=== PATIENT | female | born 1990 | race Caucasian/White ===

== ENCOUNTER → 2016-10-10 | Outpatient (CLI) | payer OTHER ==
[~2016-10-10] MED LIST: ACET500C PO; ACET50CA PO; CLAR1TAB2 PO; FLON0.054; K-TA10TA PO
[2016-10-10 13:26] LABS: BASO # 0.1 K/mm3 (0.0-0.2); BASO % 1.8 % (0.0-1.0); EOS # 0.3 K/mm3 (0.0-0.50); EOS % 4.5 % (0.0-3.0); LARGE UNSTAINED CELL # 0.1 K/mm3 (0.0-0.4); LARGE UNSTAINED CELL % 1.4 % (0.0-4.0); LYMPH # 1.8 K/mm3 (1.5-6.5); LYMPH % 29.9 % (24.0-44.0); MEAN CORPUSCULAR HEMOGLOBIN 34.5 pg (27.0-33.0); MEAN CORPUSCULAR HGB CONC 33.7 g/dl (32.0-36.5); MEAN CORPUSCULAR VOLUME 102.3 fl (80.0-96.0); MONO # 0.3 K/mm3 (0.0-0.8); MONO % 5.8 % (0.0-5.0); NEUTROPHILS # 3.3 K/mm3 (1.8-7.7); NEUTROPHILS % 56.6 % (36.0-66.0); PLATELET COUNT, AUTOMATED 350 k/mm3 (150-450); RED CELL DISTRIBUTION WIDTH 11.8 % (11.5-14.5); WHITE BLOOD COUNT 5.8 K/mm3 (4.0-10.0)
[2016-10-10 13:42] LABS: VITAMIN B12 LEVEL 1348 PG/ML (247-911)
[2016-10-10 13:53] LABS: ALBUMIN 4.1 GM/DL (3.2-5.2); ALBUMIN/GLOBULIN RATIO 1.24 (1.00-1.93); ALKALINE PHOSPHATASE 39 U/L (45-117); ALT/SGPT 16 U/L (12-78); ANION GAP 6 MEQ/L (8-16); AST/SGOT 4 U/L (15-37); BILIRUBIN,TOTAL 0.5 MG/DL (0.2-1.0); BLOOD UREA NITROGEN 12 MG/DL (7-18); CALCIUM LEVEL 9.4 MG/DL (8.5-10.1); CARBON DIOXIDE LEVEL 23 MEQ/L (21-32); CHLORIDE LEVEL 107 MEQ/L (98-107); CHOLESTEROL LEVEL 174 MG/DL (<200); CREATININE FOR GFR 0.77 MG/DL (0.55-1.02); FREE T4 0.88 NG/DL (0.76-1.46); GLOMERULAR FILTRATION RATE > 60.0 (>60); GLUCOSE, FASTING 84 MG/DL (70-105); POTASSIUM SERUM 4.3 MEQ/L (3.5-5.1); SODIUM LEVEL 136 MEQ/L (136-145); TOTAL PROTEIN 7.4 GM/DL (6.4-8.2); TRIGLYCERIDES LEVEL 125 MG/DL (<150)
== END ==
LOC: M WUC 09:00
PROVIDERS: ATTEND Physician Assistant
DX: R53.83 Other fatigue (principal); Z13.220 Encounter for screening for lipoid disorders

== ENCOUNTER → 2016-12-29 | Outpatient (CLI) | payer OTHER ==
[2016-12-29 14:34] LABS: BASO # 0.1 10^3/uL (0.0-0.2); BASO % 1.5 % (0.0-1.0); EOS # 0.2 10^3/uL (0.0-0.50); EOS % 2.7 % (0.0-3.0); IMMATURE GRANULOCYTE % 0.1 % (0-0); LYMPH % 40.3 % (24.0-44.0); MEAN CORPUSCULAR HEMOGLOBIN 35.1 pg (27.0-33.0); MEAN CORPUSCULAR HGB CONC 35.1 g/dl (32.0-36.5); MEAN CORPUSCULAR VOLUME 99.7 fl (80.0-96.0); MONO # 0.7 10^3/uL (0.0-0.8); MONO % 9.4 % (0.0-5.0); NEUTROPHILS # 3.4 10^3/uL (1.8-7.7); PLATELET COUNT, AUTOMATED 368 10^3/uL (150-450); RED CELL DISTRIBUTION WIDTH 11.1 % (11.5-14.5); WHITE BLOOD COUNT 7.3 10^3/uL (4.0-10.0)
[2016-12-29 14:41] LABS: ALBUMIN 3.8 GM/DL (3.2-5.2); ALBUMIN/GLOBULIN RATIO 1.09 (1.00-1.93); ALKALINE PHOSPHATASE 41 U/L (45-117); ALT/SGPT 16 U/L (12-78); ANION GAP 8 MEQ/L (8-16); AST/SGOT 5 U/L (15-37); BILIRUBIN,TOTAL 0.6 MG/DL (0.2-1.0); BLOOD UREA NITROGEN 15 MG/DL (7-18); CALCIUM LEVEL 9.1 MG/DL (8.5-10.1); CARBON DIOXIDE LEVEL 23 MEQ/L (21-32); CHLORIDE LEVEL 110 MEQ/L (98-107); CREATININE FOR GFR 0.79 MG/DL (0.55-1.02); GLOMERULAR FILTRATION RATE > 60.0 (>60); GLUCOSE, FASTING 81 MG/DL (70-105); POTASSIUM SERUM 4.3 MEQ/L (3.5-5.1); SODIUM LEVEL 141 MEQ/L (136-145); TOTAL PROTEIN 7.3 GM/DL (6.4-8.2)
== END ==
LOC: M WUC 09:27
PROVIDERS: ATTEND Physician Assistant
DX: E88.81 Metabolic syndrome and other insulin resistance (principal); E87.6 Hypokalemia; E55.9 Vitamin D deficiency, unspecified

== ENCOUNTER → 2017-02-05 | Outpatient (REF) | payer OTHER ==
[2017-02-05 20:08] LABS: REASON FOR REVIEW COMPREHENSIVE REVIEW
== END ==
LOC: M LAB REF 17:33
PROVIDERS: ATTEND Internal Medicine Medical Oncology
DX: D64.9 Anemia, unspecified (principal)

== ENCOUNTER → 2017-02-16 | Outpatient (CLI) | payer OTHER ==
[2017-02-16 17:36] LABS: FOLATE 7.9 NG/ML (>5.4)
[2017-02-16 17:48] LABS: ALBUMIN 3.9 GM/DL (3.2-5.2); ALBUMIN/GLOBULIN RATIO 1.18 (1.00-1.93); ALKALINE PHOSPHATASE 26 U/L (45-117); ALT/SGPT 17 U/L (12-78); ANION GAP 10 MEQ/L (8-16); AST/SGOT 6 U/L (7-37); BILIRUBIN,TOTAL 0.6 MG/DL (0.2-1.0); BLOOD UREA NITROGEN 12 MG/DL (7-18); CALCIUM LEVEL 9.1 MG/DL (8.5-10.1); CARBON DIOXIDE LEVEL 20 MEQ/L (21-32); CHLORIDE LEVEL 111 MEQ/L (98-107); CREATININE FOR GFR 0.74 MG/DL (0.55-1.02); FERRITIN 84 NG/ML (8-252); FREE T4 0.84 NG/DL (0.76-1.46); GLOMERULAR FILTRATION RATE > 60.0 (>60); GLUCOSE, FASTING 81 MG/DL (70-105); SODIUM LEVEL 141 MEQ/L (136-145); TOTAL IRON BINDING CAPACITY 228 UG/DL (250-450); TOTAL PROTEIN 7.2 GM/DL (6.4-8.2)
[2017-02-16 18:00] LABS: BASO # 0.1 10^3/uL (0.0-0.2); BASO % 1.1 % (0.0-1.0); EOS # 0.1 10^3/uL (0.0-0.50); IMMATURE GRANULOCYTE % 0.2 % (0-0); LYMPH # 1.4 10^3/uL (1.5-6.5); MEAN CORPUSCULAR HEMOGLOBIN 34.6 pg (27.0-33.0); MEAN CORPUSCULAR HGB CONC 34.8 g/dl (32.0-36.5); MEAN CORPUSCULAR VOLUME 99.5 fl (80.0-96.0); MONO # 0.6 10^3/uL (0.0-0.8); MONO % 6.8 % (0.0-5.0); NEUTROPHILS % 75.9 % (36.0-66.0); PLATELET COUNT, AUTOMATED 342 10^3/uL (150-450); RED CELL DISTRIBUTION WIDTH 11.3 % (11.5-14.5); RETIC HEMOGLOBIN EQUIVALENT 38.3 pg (24-36); RETICULOCYTE % 1.4 % (0.5-1.5); WHITE BLOOD COUNT 9.2 10^3/uL (4.0-10.0)
[2017-02-17 10:59] LABS: ALBUMIN % 59.7 % (55.8-66.1); GAMMA GLOBULIN % 16.4 % (11.1-18.8)
== END ==
LOC: M WUC 15:17
PROVIDERS: ATTEND Nurse Practitioner Family
DX: D64.9 Anemia, unspecified (principal); D75.89 Other specified diseases of blood and blood-forming organs

== ENCOUNTER → 2017-04-05 | Outpatient (CLI) | payer OTHER ==
[2017-04-05 18:10] LABS: BASO # 0.1 10^3/uL (0.0-0.2); BASO % 1.7 % (0.0-1.0); EOS # 0.2 10^3/uL (0.0-0.50); EOS % 3.4 % (0.0-3.0); HEMOGLOBIN 13.7 g/dl (12.0-16.0); IMMATURE GRANULOCYTE % 0.3 % (0-0); LYMPH % 33.6 % (24.0-44.0); MEAN CORPUSCULAR HEMOGLOBIN 33.7 pg (27.0-33.0); MEAN CORPUSCULAR HGB CONC 34.3 g/dl (32.0-36.5); MEAN CORPUSCULAR VOLUME 98.5 fl (80.0-96.0); MONO # 0.5 10^3/uL (0.0-0.8); NEUTROPHILS # 3.1 10^3/uL (1.8-7.7); PLATELET COUNT, AUTOMATED 401 10^3/uL (150-450); RED BLOOD COUNT 4.06 10^6/uL (4.00-5.40); RED CELL DISTRIBUTION WIDTH 11.2 % (11.5-14.5); WHITE BLOOD COUNT 5.9 10^3/uL (4.0-10.0)
[2017-04-05 18:31] LABS: ALBUMIN 4.1 GM/DL (3.2-5.2); ALBUMIN/GLOBULIN RATIO 1.17 (1.00-1.93); ALKALINE PHOSPHATASE 44 U/L (45-117); ALT/SGPT 17 U/L (12-78); ANION GAP 7 MEQ/L (8-16); AST/SGOT 6 U/L (7-37); BLOOD UREA NITROGEN 10 MG/DL (7-18); CARBON DIOXIDE LEVEL 26 MEQ/L (21-32); CHLORIDE LEVEL 109 MEQ/L (98-107); CREATININE FOR GFR 0.73 MG/DL (0.55-1.02); FERRITIN 69 NG/ML (8-252); GLOMERULAR FILTRATION RATE > 60.0 (>60); GLUCOSE, FASTING 83 MG/DL (70-105); IRON (FE) 164 UG/DL (50-170); PERCENT SATURATION 61.4 % (13.2-45.0); POTASSIUM SERUM 4.7 MEQ/L (3.5-5.1); SODIUM LEVEL 142 MEQ/L (136-145); TOTAL IRON BINDING CAPACITY 267 UG/DL (250-450); TOTAL PROTEIN 7.6 GM/DL (6.4-8.2)
[2017-04-06 10:44] LABS: TOTAL 25(OH) VITAMIN D 51.3 NG/ML (30.0-100.0)
== END ==
LOC: M WUC 14:26
DX: E78.1 Pure hyperglyceridemia (principal); J30.9 Allergic rhinitis, unspecified; D64.9 Anemia, unspecified; E56.9 Vitamin deficiency, unspecified
CPT/HCPCS: 83550

== ENCOUNTER → 2017-04-17 | Outpatient (CLI) | payer OTHER | LOC: M RAD 11:05 | DX: M47.892 Other spondylosis, cervical region (principal) | CPT/HCPCS: 72052 ==

== ENCOUNTER → 2017-08-10 | Outpatient (CLI) | payer OTHER ==
[2017-08-10 15:27] LABS: BASO # 0.1 10^3/uL (0.0-0.2); BASO % 1.4 % (0.0-1.0); EOS # 0.2 10^3/uL (0.0-0.50); EOS % 2.6 % (0.0-3.0); HEMATOCRIT 35.8 % (36.0-47.0); HEMOGLOBIN 12.5 g/dl (12.0-15.5); IMMATURE GRANULOCYTE % 0.2 % (0-3.0); LYMPH # 1.8 10^3/uL (1.5-6.5); LYMPH % 30.8 % (24.0-44.0); MEAN CORPUSCULAR HEMOGLOBIN 33.6 pg (27.0-33.0); MEAN CORPUSCULAR HGB CONC 34.9 g/dl (32.0-36.5); MEAN CORPUSCULAR VOLUME 96.2 fl (80.0-96.0); MONO # 0.4 10^3/uL (0.0-0.8); NEUTROPHILS # 3.3 10^3/uL (1.8-7.7); PLATELET COUNT, AUTOMATED 336 10^3/uL (150-450); RED BLOOD COUNT 3.72 10^6/uL (4.00-5.40); RED CELL DISTRIBUTION WIDTH 10.8 % (11.5-14.5); WHITE BLOOD COUNT 5.7 10^3/uL (4.0-10.0)
[2017-08-10 15:51] LABS: ALBUMIN 3.9 GM/DL (3.2-5.2); ALBUMIN/GLOBULIN RATIO 1.11 (1.00-1.93); ALKALINE PHOSPHATASE 43 U/L (45-117); ALT/SGPT 18 U/L (12-78); ANION GAP 7 MEQ/L (8-16); AST/SGOT 6 U/L (7-37); BILIRUBIN,TOTAL 0.7 MG/DL (0.2-1.0); BLOOD UREA NITROGEN 10 MG/DL (7-18); CALCIUM LEVEL 9.2 MG/DL (8.5-10.1); CARBON DIOXIDE LEVEL 29 MEQ/L (21-32); CHLORIDE LEVEL 105 MEQ/L (98-107); CREATININE FOR GFR 0.63 MG/DL (0.55-1.30); GLOMERULAR FILTRATION RATE > 60.0 (>60); GLUCOSE, FASTING 84 MG/DL (70-100); POTASSIUM SERUM 4.4 MEQ/L (3.5-5.1); SODIUM LEVEL 141 MEQ/L (136-145); TOTAL PROTEIN 7.4 GM/DL (6.4-8.2)
== END ==
LOC: M LAB 15:03
DX: B35.1 Tinea unguium (principal)
CPT/HCPCS: 80053

== ENCOUNTER → 2017-09-04 | Outpatient (REF) | payer OTHER ==
[2017-09-04 11:45] LABS: BASO # 0.1 10^3/uL (0.0-0.2); BASO % 1.9 % (0.0-1.0); EOS # 0.1 10^3/uL (0.0-0.50); EOS % 2.1 % (0.0-3.0); HEMATOCRIT 38.5 % (36.0-47.0); HEMOGLOBIN 13.2 g/dl (12.0-15.5); LYMPH # 1.7 10^3/uL (1.5-6.5); LYMPH % 33.1 % (24.0-44.0); MEAN CORPUSCULAR HEMOGLOBIN 33.2 pg (27.0-33.0); MEAN CORPUSCULAR HGB CONC 34.3 g/dl (32.0-36.5); MEAN CORPUSCULAR VOLUME 96.7 fl (80.0-96.0); MONO # 0.5 10^3/uL (0.0-0.8); NEUTROPHILS # 2.8 10^3/uL (1.8-7.7); NEUTROPHILS % 53.9 % (36.0-66.0); PLATELET COUNT, AUTOMATED 353 10^3/uL (150-450); RED BLOOD COUNT 3.98 10^6/uL (4.00-5.40); RED CELL DISTRIBUTION WIDTH 10.8 % (11.5-14.5); WHITE BLOOD COUNT 5.2 10^3/uL (4.0-10.0)
[2017-09-04 12:33] LABS: ALBUMIN 3.9 GM/DL (3.2-5.2); ALBUMIN/GLOBULIN RATIO 1.11 (1.00-1.93); ALKALINE PHOSPHATASE 42 U/L (45-117); ALT/SGPT 19 U/L (12-78); ANION GAP 7 MEQ/L (8-16); AST/SGOT 5 U/L (7-37); BILIRUBIN,TOTAL 0.9 MG/DL (0.2-1.0); BLOOD UREA NITROGEN 11 MG/DL (7-18); CARBON DIOXIDE LEVEL 30 MEQ/L (21-32); CHLORIDE LEVEL 104 MEQ/L (98-107); CHOLESTEROL LEVEL 186 MG/DL (<200); CHOLESTEROL RISK RATIO 3.875 (<5); CREATININE FOR GFR 0.77 MG/DL (0.55-1.30); FERRITIN 32 NG/ML (8-252); GLOMERULAR FILTRATION RATE > 60.0 (>60); GLUCOSE, FASTING 84 MG/DL (70-100); HDL CHOLESTEROL 48 MG/DL (>40); IRON (FE) 116 UG/DL (50-170); LDL CHOLESTEROL 106.2 MG/DL (<100); NON-HDL-C 138 MG/DL; PERCENT SATURATION 39.2 % (13.2-45.0); POTASSIUM SERUM 4.8 MEQ/L (3.5-5.1); SODIUM LEVEL 141 MEQ/L (136-145); TOTAL IRON BINDING CAPACITY 296 UG/DL (250-450); TOTAL PROTEIN 7.4 GM/DL (6.4-8.2); TRIGLYCERIDES LEVEL 159 MG/DL (<150)
[2017-09-04 12:39] LABS: TOTAL 25(OH) VITAMIN D 71.7 NG/ML (30.0-100.0)
[2017-09-04 13:58] LABS: ESTIMATED AVERAGE GLUCOSE 82 MG/DL (60-110); HEMOGLOBIN A1c 4.5 %
== END ==
LOC: M LABDRAW1 10:40
DX: D64.9 Anemia, unspecified (principal); E78.1 Pure hyperglyceridemia; E28.2 Polycystic ovarian syndrome; E55.9 Vitamin D deficiency, unspecified

== ENCOUNTER → 2017-09-11 | Outpatient (CLI) | payer OTHER ==
[2017-09-11 16:31] LABS: ALBUMIN 3.9 GM/DL (3.2-5.2); ALBUMIN/GLOBULIN RATIO 1.08 (1.00-1.93); ALKALINE PHOSPHATASE 42 U/L (45-117); ALT/SGPT 15 U/L (12-78); ANION GAP 7 MEQ/L (8-16); AST/SGOT 5 U/L (7-37); BILIRUBIN,TOTAL 0.7 MG/DL (0.2-1.0); BLOOD UREA NITROGEN 14 MG/DL (7-18); CALCIUM LEVEL 8.9 MG/DL (8.5-10.1); CARBON DIOXIDE LEVEL 28 MEQ/L (21-32); CHLORIDE LEVEL 107 MEQ/L (98-107); CREATININE FOR GFR 0.79 MG/DL (0.55-1.30); GLOMERULAR FILTRATION RATE > 60.0 (>60); GLUCOSE, FASTING 80 MG/DL (70-100); POTASSIUM SERUM 4.9 MEQ/L (3.5-5.1); SODIUM LEVEL 142 MEQ/L (136-145); TOTAL PROTEIN 7.5 GM/DL (6.4-8.2)
[2017-09-11 16:33] LABS: BASO # 0.1 10^3/uL (0.0-0.2); BASO % 1.4 % (0.0-1.0); EOS # 0.2 10^3/uL (0.0-0.50); EOS % 2.3 % (0.0-3.0); HEMATOCRIT 40.7 % (36.0-47.0); IMMATURE GRANULOCYTE % 0.6 % (0-3.0); LYMPH # 1.9 10^3/uL (1.5-6.5); MEAN CORPUSCULAR HEMOGLOBIN 33.2 pg (27.0-33.0); MEAN CORPUSCULAR HGB CONC 34.4 g/dl (32.0-36.5); MEAN CORPUSCULAR VOLUME 96.4 fl (80.0-96.0); MONO # 0.5 10^3/uL (0.0-0.8); MONO % 8.4 % (0.0-5.0); NEUTROPHILS # 3.7 10^3/uL (1.8-7.7); NEUTROPHILS % 57.3 % (36.0-66.0); PLATELET COUNT, AUTOMATED 389 10^3/uL (150-450); RED BLOOD COUNT 4.22 10^6/uL (4.00-5.40); RED CELL DISTRIBUTION WIDTH 10.8 % (11.5-14.5); WHITE BLOOD COUNT 6.4 10^3/uL (4.0-10.0)
== END ==
LOC: M SMT 13:03
DX: B35.1 Tinea unguium (principal)
CPT/HCPCS: 80053

== ENCOUNTER → 2017-12-27 | Outpatient (CLI) | payer MEDICARE, MEDICAID ==
[2017-12-27 17:38] LABS: BASO # 0.1 10^3/uL (0.0-0.2); BASO % 1.1 % (0.0-1.0); EOS # 0.1 10^3/uL (0.0-0.50); EOS % 1.6 % (0.0-3.0); HEMATOCRIT 37.2 % (36.0-47.0); HEMOGLOBIN 12.6 g/dl (12.0-15.5); IMMATURE GRANULOCYTE % 0.4 % (0-3.0); LYMPH # 1.5 10^3/uL (1.5-6.5); LYMPH % 27.2 % (24.0-44.0); MEAN CORPUSCULAR HEMOGLOBIN 33.4 pg (27.0-33.0); MEAN CORPUSCULAR HGB CONC 33.9 g/dl (32.0-36.5); MEAN CORPUSCULAR VOLUME 98.7 fl (80.0-96.0); MONO # 0.5 10^3/uL (0.0-0.8); MONO % 8.8 % (0.0-5.0); NEUTROPHILS # 3.4 10^3/uL (1.8-7.7); NEUTROPHILS % 60.9 % (36.0-66.0); PLATELET COUNT, AUTOMATED 333 10^3/uL (150-450); RED BLOOD COUNT 3.77 10^6/uL (4.00-5.40); RED CELL DISTRIBUTION WIDTH 11.4 % (11.5-14.5); WHITE BLOOD COUNT 5.6 10^3/uL (4.0-10.0)
[2017-12-27 17:51] LABS: ALBUMIN 3.7 GM/DL (3.2-5.2); ALBUMIN/GLOBULIN RATIO 1.16 (1.00-1.93); ALKALINE PHOSPHATASE 42 U/L (45-117); ALT/SGPT 13 U/L (12-78); ANION GAP 5 MEQ/L (8-16); AST/SGOT 7 U/L (7-37); BILIRUBIN,TOTAL 0.9 MG/DL (0.2-1.0); BLOOD UREA NITROGEN 12 MG/DL (7-18); CALCIUM LEVEL 9.1 MG/DL (8.5-10.1); CARBON DIOXIDE LEVEL 28 MEQ/L (21-32); CHLORIDE LEVEL 107 MEQ/L (98-107); CHOLESTEROL LEVEL 184 MG/DL (<200); CHOLESTEROL RISK RATIO 3.471 (<5); CREATININE FOR GFR 0.73 MG/DL (0.55-1.30); GLOMERULAR FILTRATION RATE > 60.0 (>60); GLUCOSE, FASTING 94 MG/DL (70-100); HDL CHOLESTEROL 53 MG/DL (>40); LDL CHOLESTEROL 113 MG/DL (<100); MAGNESIUM LEVEL 2.1 MG/DL (1.8-2.4); NON-HDL-C 131 MG/DL; POTASSIUM SERUM 4.6 MEQ/L (3.5-5.1); SODIUM LEVEL 140 MEQ/L (136-145); TOTAL PROTEIN 6.9 GM/DL (6.4-8.2); TRIGLYCERIDES LEVEL 90 MG/DL (<150)
== END ==
LOC: M WUC 11:32
DX: J30.9 Allergic rhinitis, unspecified (principal); E87.6 Hypokalemia; E78.1 Pure hyperglyceridemia; G93.2 Benign intracranial hypertension; E55.9 Vitamin D deficiency, unspecified; E28.2 Polycystic ovarian syndrome; Z79.899 Other long term (current) drug therapy
CPT/HCPCS: 83735

== ENCOUNTER → 2018-04-25 | Outpatient (REF) | payer MEDICARE, MEDICAID ==
[2018-04-25 21:58] LABS: APPEARANCE, URINE CLOUDY (CLEAR); BACTERIA, URINE AUTO 3+ (NEGATIVE); BILIRUBIN, URINE AUTO NEGATIVE (NEGATIVE); BLOOD, URINE BLOOD NEGATIVE (NEGATIVE); COLOR, URINE AMBER (YELLOW); GLUCOSE, URINE (UA) AUTO NEGATIVE (NEGATIVE); KETONE, URINE AUTO NEGATIVE (NEGATIVE); LEUKOCYTE ESTERASE, URINE AUTO NEGATIVE (NEGATIVE); MUCUS, URINE SMALL (NEGATIVE); NITRITE, URINE AUTO NEGATIVE (NEGATIVE); PROTEIN, URINE AUTO NEGATIVE (NEGATIVE); RBC, URINE AUTO 2 /HPF (0-3); SPECIFIC GRAVITY URINE AUTO 1.013 (1.002-1.035); SQUAMOUS EPITHELIAL CELL UR AU 2 /HPF (0-6); UROBILINOGEN, URINE AUTO 0.2 mg/dL (0.0-2.0); WBC, URINE AUTO 1 /HPF (0-3)
== END ==
LOC: M LAB REF 10:02
PROVIDERS: ATTEND Physician Assistant Medical
DX: N39.0 Urinary tract infection, site not specified (principal)

== ENCOUNTER → 2018-06-13 | Outpatient (CLI) | payer MEDICARE, MEDICAID | LOC: M WUC 10:25 | PROVIDERS: ATTEND Physician Assistant | DX: G93.2 Benign intracranial hypertension (principal) ==

== ENCOUNTER → 2018-06-13 | Outpatient (CLI) | payer MEDICARE, MEDICAID ==
[2018-06-13 19:01] LABS: ALBUMIN 3.9 GM/DL (3.2-5.2); ALT/SGPT 15 U/L (12-78); BILIRUBIN,TOTAL 0.9 MG/DL (0.2-1.0); BLOOD UREA NITROGEN 11 MG/DL (7-18); CARBON DIOXIDE LEVEL 28 MEQ/L (21-32); CHLORIDE LEVEL 103 MEQ/L (98-107); CREATININE FOR GFR 0.73 MG/DL (0.55-1.30); GLOMERULAR FILTRATION RATE > 60.0 (>60); GLUCOSE, FASTING 84 MG/DL (70-100); POTASSIUM SERUM 4.4 MEQ/L (3.5-5.1); SODIUM LEVEL 138 MEQ/L (136-145); TOTAL PROTEIN 7.2 GM/DL (6.4-8.2)
== END ==
LOC: M WUC 10:29
PROVIDERS: ATTEND Physician Assistant
DX: B35.1 Tinea unguium (principal); G93.2 Benign intracranial hypertension

== ENCOUNTER → 2019-01-02 | Outpatient (CLI) | payer MEDICARE, MEDICAID ==
[2019-01-02 17:56] LABS: BASO # 0.1 10^3/uL (0.0-0.2); BASO % 1.5 % (0.0-1.0); EOS # 0.1 10^3/uL (0.0-0.5); EOS % 0.8 % (0.0-3.0); HEMATOCRIT 40.7 % (36.0-47.0); HEMOGLOBIN 13.9 g/dl (12.0-15.5); LYMPH # 1.7 10^3/uL (1.5-5.0); LYMPH % 22.4 % (24.0-44.0); MEAN CORPUSCULAR HEMOGLOBIN 33.9 pg (27.0-33.0); MEAN CORPUSCULAR HGB CONC 34.2 g/dl (32.0-36.5); MEAN CORPUSCULAR VOLUME 99.3 fl (80.0-96.0); MONO # 0.7 10^3/uL (0.0-0.8); NEUTROPHILS # 4.9 10^3/uL (1.5-8.5); PLATELET COUNT, AUTOMATED 397 10^3/uL (150-450); WHITE BLOOD COUNT 7.5 10^3/uL (4.0-10.0)
[2019-01-02 18:04] LABS: ALBUMIN 3.8 GM/DL (3.2-5.2); ALT/SGPT 15 U/L (12-78); BLOOD UREA NITROGEN 10 MG/DL (7-18); CALCIUM LEVEL 9.1 MG/DL (8.5-10.1); CARBON DIOXIDE LEVEL 29 MEQ/L (21-32); CHLORIDE LEVEL 105 MEQ/L (98-107); CHOLESTEROL LEVEL 216 MG/DL (<200); CHOLESTEROL RISK RATIO 4.909 (<5); CREATININE FOR GFR 0.76 MG/DL (0.55-1.30); FERRITIN 33 NG/ML (8-252); GLOMERULAR FILTRATION RATE > 60.0 (>60); GLUCOSE, FASTING 83 MG/DL (70-100); HDL CHOLESTEROL 44 MG/DL (>40); IRON (FE) 133 UG/DL (50-170); LDL CHOLESTEROL 147 MG/DL (<100); NON-HDL-C 172 MG/DL; PERCENT SATURATION 42.5 % (13.2-45.0); POTASSIUM SERUM 4.6 MEQ/L (3.5-5.1); SODIUM LEVEL 138 MEQ/L (136-145); TOTAL IRON BINDING CAPACITY 313 UG/DL (250-450); TOTAL PROTEIN 7.3 GM/DL (6.4-8.2); TRIGLYCERIDES LEVEL 123 MG/DL (<150)
[2019-01-03 10:43] LABS: TOTAL 25(OH) VITAMIN D 53.3 NG/ML (30.0-100.0)
== END ==
LOC: M WUC 11:15
PROVIDERS: ATTEND Physician Assistant
DX: D64.9 Anemia, unspecified (principal); E78.1 Pure hyperglyceridemia; E88.81 Metabolic syndrome and other insulin resistance; E55.9 Vitamin D deficiency, unspecified; B35.1 Tinea unguium

== ENCOUNTER → 2019-01-02 | Outpatient (CLI) | payer MEDICARE, MEDICAID ==
[2019-01-02 18:06] LABS: ALBUMIN 3.8 GM/DL (3.2-5.2); ALT/SGPT 16 U/L (12-78); BLOOD UREA NITROGEN 11 MG/DL (7-18); CARBON DIOXIDE LEVEL 28 MEQ/L (21-32); CHLORIDE LEVEL 105 MEQ/L (98-107); CREATININE FOR GFR 0.74 MG/DL (0.55-1.30); GLOMERULAR FILTRATION RATE > 60.0 (>60); GLUCOSE, FASTING 83 MG/DL (70-100); POTASSIUM SERUM 4.6 MEQ/L (3.5-5.1); SODIUM LEVEL 138 MEQ/L (136-145); TOTAL PROTEIN 7.2 GM/DL (6.4-8.2)
== END ==
LOC: M WUC 11:20
PROVIDERS: ATTEND Physician Assistant
DX: B35.1 Tinea unguium (principal)

== ENCOUNTER 2019-05-09 07:59 | Emergency (ER) | payer MEDICARE, MEDICAID ==
[~2019-05-09] VITALS: Ht 167.6 cm; Wt 105.9 kg
[2019-05-09] MEDS ORDERED: CLIN2CR PV (08:19)
[2019-05-09] MEDS ORDERED: INDO-16 PO (08:19)
[2019-05-09] MEDS ORDERED: FLUC150T PO (08:19)
[2019-05-09] MEDS ORDERED: VITA500079 PO ×2 (08:19)
[2019-05-09] MEDS ORDERED: METF-791 PO ×2 (08:19)
[2019-05-09] MEDS ORDERED: FISH1000 PO (08:19)
[2019-05-09] MEDS ORDERED: vitamin B 12 PO (08:19)
[2019-05-09] MEDS ORDERED: MAGN400C PO (08:19)
[2019-05-09] MEDS ORDERED: [UNRECOGNIZED DRUG - OTHER] PO (08:19)
[2019-05-09] MEDS ORDERED: CVS1CAP2 PO (08:19)
[2019-05-09] MEDS ORDERED: FLUTISP NARES (08:19)
--- NOTE | 2019-05-09 08:57 | REP ---
Clinical: Shunt series. Technique: Three views of the abdomen/pelvis. Findings: A shunt is identified extending from the region of the lumbar spinal canal along the right flank and into the pelvis. Catheter appears normal and without fracture or acute angulation to suggest occlusion. Impression: Shunt appears intact. Electronically Signed by Jarocho Canseco MD 05/09/2019 08:46 A
[2019-05-09] MEDS ORDERED: LIDO5DIS41 TD (09:06)
[2019-05-09] MEDS ORDERED: KETOROLAC 60 MG/2 ML VIAL (J1885) IM ONE (09:15)
[2019-05-09 09:28] VITALS: BP 142/82
== END 2019-05-09 09:36 | disposition home or self-care (01) ==
LOC: M ED 07:59
DX: M79.18 Myalgia, other site (principal); Z96.89 Presence of other specified functional implants; F41.1 Generalized anxiety disorder; F32.9 Major depressive disorder, single episode, unspecified; E66.01 Morbid (severe) obesity due to excess calories; H54.42A3 Blindness left eye category 3, normal vision right eye; E11.9 Type 2 diabetes mellitus without complications; Z79.899 Other long term (current) drug therapy; Z79.84 Long term (current) use of oral hypoglycemic drugs; Z88.5 Allergy status to narcotic agent; Z88.8 Allergy status to other drugs, medicaments and biological substances
CPT/HCPCS: 75809; 84702; 96372; 99284; J1885

== ENCOUNTER → 2019-09-30 | Outpatient (REF) | payer MEDICARE, MEDICAID ==
[~2019-09-30] MED LIST changes: +CLIN2CR PV; +CVS1CAP2 PO; +FISH1000 PO; +FLUC150T PO; +FLUTISP NARES; +INDO-16 PO; +LIDO5DIS41 TD; +MAGN400C PO; +METF-838 PO; +VITA500079 PO; +[UNRECOGNIZED DRUG - OTHER] PO; +vitamin B 12 PO
== END ==
LOC: M LAB REF 17:04
PROVIDERS: ATTEND Physician Assistant Medical
DX: Z11.59 Encounter for screening for other viral diseases (principal)

== ENCOUNTER → 2020-03-12 | Outpatient (REF) | payer MEDICARE, MEDICAID ==
[2020-03-12 13:36] LABS: BASO # 0.1 10^3/uL (0.0-0.2); BASO % 1.1 % (0.0-1.0); EOS # 0.3 10^3/uL (0.0-0.5); EOS % 2.9 % (0.0-3.0); HEMATOCRIT 41.9 % (36.0-47.0); HEMOGLOBIN 14.2 g/dl (12.0-15.5); LYMPH # 2.2 10^3/uL (1.5-5.0); LYMPH % 22.7 % (24.0-44.0); MEAN CORPUSCULAR HEMOGLOBIN 32.9 pg (27.0-33.0); MEAN CORPUSCULAR HGB CONC 33.9 g/dl (32.0-36.5); MEAN CORPUSCULAR VOLUME 97.2 fl (80.0-96.0); MONO # 0.8 10^3/uL (0.0-0.8); NEUTROPHILS # 6.3 10^3/uL (1.5-8.5); PLATELET COUNT, AUTOMATED 390 10^3/uL (150-450); RED BLOOD COUNT 4.31 10^6/uL (4.00-5.40); WHITE BLOOD COUNT 9.7 10^3/uL (4.0-10.0)
[2020-03-12 14:00] LABS: ALBUMIN 3.9 GM/DL (3.2-5.2); ALT/SGPT 49 U/L (12-78); BILIRUBIN,TOTAL 0.5 MG/DL (0.2-1.0); BLOOD UREA NITROGEN 16 MG/DL (7-18); CALCIUM LEVEL 9.4 MG/DL (8.5-10.1); CARBON DIOXIDE LEVEL 29 MEQ/L (21-32); CHLORIDE LEVEL 103 MEQ/L (98-107); CHOLESTEROL LEVEL 238 MG/DL (<200); CHOLESTEROL RISK RATIO 6.611 (<5); CREATININE FOR GFR 0.88 MG/DL (0.55-1.30); GLOMERULAR FILTRATION RATE > 60.0 (>60); GLUCOSE, FASTING 87 MG/DL (70-100); HDL CHOLESTEROL 36 MG/DL (>40); LDL CHOLESTEROL 152 MG/DL (<100); NON-HDL-C 202 MG/DL; POTASSIUM SERUM 4.6 MEQ/L (3.5-5.1); SODIUM LEVEL 138 MEQ/L (136-145); TOTAL PROTEIN 7.6 GM/DL (6.4-8.2); TRIGLYCERIDES LEVEL 251 MG/DL (<150)
[2020-03-12 14:27] LABS: TOTAL 25(OH) VITAMIN D 44.4 NG/ML (30.0-100.0)
== END ==
LOC: M SFHCPLAZ 11:07
PROVIDERS: ATTEND Physician Assistant
DX: D64.9 Anemia, unspecified (principal); E87.6 Hypokalemia; E78.2 Mixed hyperlipidemia; E55.9 Vitamin D deficiency, unspecified

== ENCOUNTER → 2020-10-24 | Outpatient (CLI) | payer MEDICARE, MEDICAID ==
[2020-10-24 18:43] LABS: ALBUMIN 4.1 GM/DL (3.2-5.2); ALT/SGPT 36 U/L (12-78); BILIRUBIN,TOTAL 0.8 MG/DL (0.2-1.0); BLOOD UREA NITROGEN 11 MG/DL (7-18); CALCIUM LEVEL 9.5 MG/DL (8.5-10.1); CARBON DIOXIDE LEVEL 29 MEQ/L (21-32); CHLORIDE LEVEL 99 MEQ/L (98-107); CHOLESTEROL LEVEL 250 MG/DL (<200); CHOLESTEROL RISK RATIO 5.952 (<5); CREATININE FOR GFR 0.92 MG/DL (0.55-1.30); GLOMERULAR FILTRATION RATE > 60.0 (>60); GLUCOSE, FASTING 85 MG/DL (70-100); HDL CHOLESTEROL 42 MG/DL (>40); LDL CHOLESTEROL 143 MG/DL (<100); NON-HDL-C 208 MG/DL; POTASSIUM SERUM 4.6 MEQ/L (3.5-5.1); SODIUM LEVEL 135 MEQ/L (136-145); TRIGLYCERIDES LEVEL 327 MG/DL (<150)
== END ==
LOC: M PLALAB 14:19
PROVIDERS: ATTEND Internal Medicine Endocrinology, Diabetes & Metabolism
DX: E78.2 Mixed hyperlipidemia (principal)

== ENCOUNTER → 2020-10-24 | Outpatient (CLI) | payer MEDICARE, MEDICAID ==
[2020-10-24 18:38] LABS: HEMATOCRIT 42.8 % (36.0-47.0); HEMOGLOBIN 14.7 g/dl (12.0-15.5); MEAN CORPUSCULAR HGB CONC 34.3 g/dl (32.0-36.5); PLATELET COUNT, AUTOMATED 444 10^3/uL (150-450); RED BLOOD COUNT 4.46 10^6/uL (4.00-5.40)
[2020-10-24 18:52] LABS: ALBUMIN 4.1 GM/DL (3.2-5.2); ALT/SGPT 36 U/L (12-78); BILIRUBIN,TOTAL 0.8 MG/DL (0.2-1.0); BLOOD UREA NITROGEN 12 MG/DL (7-18); CALCIUM LEVEL 9.4 MG/DL (8.5-10.1); CARBON DIOXIDE LEVEL 29 MEQ/L (21-32); CHLORIDE LEVEL 102 MEQ/L (98-107); CHOLESTEROL LEVEL 249 MG/DL (<200); CHOLESTEROL RISK RATIO 5.928 (<5); GLOMERULAR FILTRATION RATE > 60.0 (>60); GLUCOSE, FASTING 86 MG/DL (70-100); HDL CHOLESTEROL 42 MG/DL (>40); LDL CHOLESTEROL 143 MG/DL (<100); NON-HDL-C 207 MG/DL; POTASSIUM SERUM 4.8 MEQ/L (3.5-5.1); SODIUM LEVEL 138 MEQ/L (136-145); TRIGLYCERIDES LEVEL 320 MG/DL (<150)
[2020-10-24 19:42] LABS: HEMOGLOBIN A1c 5.3 %
[2020-10-26 09:27] LABS: TOTAL 25(OH) VITAMIN D 43.7 NG/ML (30.0-100.0)
== END ==
LOC: M PLALAB 14:23
PROVIDERS: ATTEND Physician Assistant
DX: E55.9 Vitamin D deficiency, unspecified (principal); E28.2 Polycystic ovarian syndrome; E78.2 Mixed hyperlipidemia; D64.9 Anemia, unspecified; F43.23 Adjustment disorder with mixed anxiety and depressed mood; Z79.899 Other long term (current) drug therapy

== ENCOUNTER → 2020-11-30 | Outpatient (CLI) | payer MEDICARE, OTHER, MEDICAID ==
[2020-11-30 13:21] LABS: HEMATOCRIT 41.7 % (36.0-47.0); HEMOGLOBIN 14.2 g/dl (12.0-15.5); MEAN CORPUSCULAR HEMOGLOBIN 32.9 pg (27.0-33.0); MEAN CORPUSCULAR HGB CONC 34.1 g/dl (32.0-36.5); MEAN CORPUSCULAR VOLUME 96.5 fl (80.0-96.0); PLATELET COUNT, AUTOMATED 406 10^3/uL (150-450); RED BLOOD COUNT 4.32 10^6/uL (4.00-5.40); WHITE BLOOD COUNT 8.9 10^3/uL (4.0-10.0)
[2020-11-30 13:47] LABS: C REACTIVE PROTEIN QUANTITATIV 0.44 MG/DL (0.00-0.30); RHEUMATOID FACTOR QUANT < 10.0 IU/ML (<15.0)
[2020-11-30 14:06] LABS: ERYTHROCYTE SEDIMENTATION RATE 11 mm/hr (0-20)
== END ==
LOC: M WUC 11:44
PROVIDERS: ATTEND Physician Assistant
DX: M25.542 Pain in joints of left hand (principal); M25.541 Pain in joints of right hand

== ENCOUNTER → 2021-05-12 | Outpatient (CLI) | payer MEDICARE, OTHER, MEDICAID ==
[~2021-05-12] MED LIST changes: -FLUC150T PO; +FLUC150T9 PO
[2021-05-12 11:34] LABS: ALBUMIN 3.8 GM/DL (3.2-5.2); ALT/SGPT 26 U/L (12-78); BILIRUBIN,TOTAL 0.8 MG/DL (0.2-1.0); BLOOD UREA NITROGEN 13 MG/DL (7-18); CALCIUM LEVEL 9.1 MG/DL (8.5-10.1); CARBON DIOXIDE LEVEL 28 MEQ/L (21-32); CHLORIDE LEVEL 103 MEQ/L (98-107); CHOLESTEROL LEVEL 215 MG/DL (<200); CHOLESTEROL RISK RATIO 5.512 (<5); CREATININE FOR GFR 0.85 MG/DL (0.55-1.30); GLOMERULAR FILTRATION RATE > 60.0 (>60); GLUCOSE, FASTING 85 MG/DL (70-100); HDL CHOLESTEROL 39 MG/DL (>40); LDL CHOLESTEROL 123 MG/DL (<100); NON-HDL-C 176 MG/DL; POTASSIUM SERUM 4.2 MEQ/L (3.5-5.1); SODIUM LEVEL 137 MEQ/L (136-145); TOTAL PROTEIN 7.6 GM/DL (6.4-8.2); TRIGLYCERIDES LEVEL 264 MG/DL (<150)
== END ==
LOC: M LAB 09:45
PROVIDERS: ATTEND Nurse Practitioner Family
DX: E78.2 Mixed hyperlipidemia (principal)

== ENCOUNTER → 2021-06-11 | Outpatient (REF) | payer MEDICARE, MEDICAID ==
[2021-06-11 16:42] LABS: APPEARANCE, URINE CLOUDY (CLEAR); BACTERIA, URINE AUTO 1+ (NEGATIVE); BILIRUBIN, URINE AUTO NEGATIVE (NEGATIVE); BLOOD, URINE BLOOD 1+ (NEGATIVE); COLOR, URINE AMBER (YELLOW); GLUCOSE, URINE (UA) AUTO NEGATIVE (NEGATIVE); KETONE, URINE AUTO NEGATIVE (NEGATIVE); LEUKOCYTE ESTERASE, URINE AUTO NEGATIVE (NEGATIVE); MUCUS, URINE SMALL (NEGATIVE); NITRITE, URINE AUTO NEGATIVE (NEGATIVE); PROTEIN, URINE AUTO NEGATIVE (NEGATIVE); RBC, URINE AUTO 8 /HPF (0-3); SPECIFIC GRAVITY URINE AUTO 1.017 (1.002-1.035); SQUAMOUS EPITHELIAL CELL UR AU 5 /HPF (0-6); UROBILINOGEN, URINE AUTO 0.2 mg/dL (0.0-2.0); WBC, URINE AUTO 1 /HPF (0-3)
== END ==
LOC: M LAB REF 16:13
PROVIDERS: ATTEND Physician Assistant
DX: N39.0 Urinary tract infection, site not specified (principal)

== ENCOUNTER → 2021-12-05 | Outpatient (CLI) | payer MEDICARE, MEDICAID ==
[2021-12-05 18:20] LABS: C REACTIVE PROTEIN QUANTITATIV < 0.30 MG/DL (0.00-0.30); FREE T4 0.86 NG/DL (0.76-1.46)
== END ==
LOC: M PLALAB 14:20
PROVIDERS: ATTEND Internal Medicine Hematology
DX: E28.2 Polycystic ovarian syndrome (principal); Z79.899 Other long term (current) drug therapy

== ENCOUNTER → 2021-12-09 | Outpatient (CLI) | payer MEDICARE, MEDICAID | LOC: M PLALAB 13:21 | PROVIDERS: ATTEND Internal Medicine Hematology | DX: Z02.1 Encounter for pre-employment examination (principal) ==

== ENCOUNTER → 2022-06-04 | Outpatient (CLI) | payer MEDICARE, MEDICAID ==
[2022-06-04 11:42] LABS: HEMOGLOBIN 14.1 g/dl (12.0-15.5); MEAN CORPUSCULAR HEMOGLOBIN 33.9 pg (27.0-33.0); MEAN CORPUSCULAR HGB CONC 34.4 g/dl (32.0-36.5); MEAN CORPUSCULAR VOLUME 98.6 fl (80.0-96.0); PLATELET COUNT, AUTOMATED 411 10^3/uL (150-450); RED BLOOD COUNT 4.16 10^6/uL (4.00-5.40); WHITE BLOOD COUNT 10.4 10^3/uL (4.0-10.0)
[2022-06-04 12:01] LABS: HEMOGLOBIN A1c 4.9 % (4.0-6.0)
[2022-06-04 12:09] LABS: CREATININE, URINE 144.6 MG/DL; MALB URINE SIEMENS < 3.0 MG/L
[2022-06-04 12:11] LABS: C REACTIVE PROTEIN QUANTITATIV < 0.40 MG/DL (<1.0)
[2022-06-04 12:15] LABS: ALBUMIN 3.8 G/DL (3.2-5.2); ALKALINE PHOSPHATASE 50 U/L (46-116); ALT/SGPT 32 U/L (7.0-40); AST/SGOT 21 U/L (<34); BILIRUBIN,TOTAL 0.7 MG/DL (0.3-1.2); BLOOD UREA NITROGEN 12 MG/DL (9-23); CALCIUM LEVEL 9.1 MG/DL (8.5-10.1); CARBON DIOXIDE LEVEL 29 MMOL/L (20-31); CHLORIDE LEVEL 100 MMOL/L (98-107); CHOLESTEROL LEVEL 214 MG/DL (<200); CHOLESTEROL RISK RATIO 5.15 (<5); CREATININE FOR GFR 0.81 MG/DL (0.55-1.30); FREE T4 1.08 NG/DL (0.89-1.76); GLOMERULAR FILTRATION RATE > 60.0 (>60); GLUCOSE, FASTING 74 MG/DL (60-100); HDL CHOLESTEROL 41.5 MG/DL (>40); LDL CHOLESTEROL 101.7 MG/DL (<100); NON-HDL-C 172.5 MG/DL; POTASSIUM SERUM 4.4 MMOL/L (3.5-5.1); SODIUM LEVEL 136 MMOL/L (136-145); THYROID STIMULATING HORMONE 4.468 uIU/ML (0.55-4.78); TOTAL 25(OH) VITAMIN D 30.9 NG/ML (20.0-100.0); TRIGLYCERIDES LEVEL 354 MG/DL (<150); VITAMIN B12 LEVEL 667 PG/ML (211-911)
== END ==
LOC: M PLALAB 08:45
PROVIDERS: ATTEND Internal Medicine Hematology
DX: Z02.1 Encounter for pre-employment examination (principal); E88.81 Metabolic syndrome and other insulin resistance

== ENCOUNTER → 2022-07-21 | Outpatient (REF) | payer OTHER, MEDICAID ==
[~2022-07-21] MED LIST changes: +FLUT50SP17 NARES; -FLUTISP NARES
[2022-07-21 17:41] LABS: APPEARANCE, URINE HAZY (CLEAR); BACTERIA, URINE AUTO 1+ (NEGATIVE); BILIRUBIN, URINE AUTO NEGATIVE (NEGATIVE); BLOOD, URINE BLOOD 1+ (NEGATIVE); COLOR, URINE YELLOW (YELLOW); GLUCOSE, URINE (UA) AUTO NEGATIVE (NEGATIVE); KETONE, URINE AUTO NEGATIVE (NEGATIVE); LEUKOCYTE ESTERASE, URINE AUTO NEGATIVE (NEGATIVE); NITRITE, URINE AUTO NEGATIVE (NEGATIVE); PROTEIN, URINE AUTO NEGATIVE (NEGATIVE); RBC, URINE AUTO 4 /HPF (0-3); SPECIFIC GRAVITY URINE AUTO 1.009 (1.002-1.035); SQUAMOUS EPITHELIAL CELL UR AU 1 /HPF (0-6); UROBILINOGEN, URINE AUTO 0.2 mg/dL (0.0-2.0); WBC, URINE AUTO 0 /HPF (0-3)
== END ==
LOC: M LAB REF 16:25
PROVIDERS: ATTEND Physician Assistant Medical
DX: N39.0 Urinary tract infection, site not specified (principal)

== ENCOUNTER 2022-09-19 22:13 | Emergency (ER) | payer MEDICARE, MEDICAID ==
[~2022-09-19] VITALS: Ht 167.6 cm; Wt 110.5 kg
[~2022-09-19 22:13] MED LIST changes: -K-TA10TA PO; +POTA-164 PO
[2022-09-19 22:14] VITALS: BP 137/87; TEMP 97.6; O2SAT 99
== END 2022-09-20 00:40 | disposition home or self-care (01) ==
LOC: M ED 22:13
DX: M76.31 Iliotibial band syndrome, right leg (principal); E11.9 Type 2 diabetes mellitus without complications; H54.8 Legal blindness, as defined in USA; Z79.899 Other long term (current) drug therapy; Z88.5 Allergy status to narcotic agent; Z88.8 Allergy status to other drugs, medicaments and biological substances

== ENCOUNTER → 2022-11-17 | Outpatient (CLI) | payer MEDICARE, MEDICAID ==
[2022-11-17 12:26] LABS: HEMATOCRIT 40.3 % (36.0-47.0); HEMOGLOBIN 13.6 g/dl (12.0-15.5); MEAN CORPUSCULAR HEMOGLOBIN 33.1 pg (27.0-33.0); MEAN CORPUSCULAR HGB CONC 33.7 g/dl (32.0-36.5); MEAN CORPUSCULAR VOLUME 98.1 fl (80.0-96.0); PLATELET COUNT, AUTOMATED 371 10^3/uL (150-450); RED BLOOD COUNT 4.11 10^6/uL (4.00-5.40); WHITE BLOOD COUNT 8.9 10^3/uL (4.0-10.0)
[2022-11-17 12:46] LABS: HEMOGLOBIN A1c 4.7 % (4.0-6.0)
[2022-11-17 12:53] LABS: CREATININE, URINE 107.4 MG/DL; MAU/CREAT RATIO 2.7 MCG/MG (0.0-30.0)
[2022-11-17 12:55] LABS: C REACTIVE PROTEIN QUANTITATIV < 0.40 MG/DL (<1.0)
[2022-11-17 12:56] LABS: ALBUMIN 3.8 G/DL (3.2-5.2); ALKALINE PHOSPHATASE 47 U/L (46-116); ALT/SGPT 37 U/L (7.0-40); AST/SGOT < 8 U/L (<34); BILIRUBIN,TOTAL 0.7 MG/DL (0.3-1.2); BLOOD UREA NITROGEN 13 MG/DL (9-23); CALCIUM LEVEL 9.3 MG/DL (8.5-10.1); CARBON DIOXIDE LEVEL 28 MMOL/L (20-31); CHLORIDE LEVEL 103 MMOL/L (98-107); CHOLESTEROL LEVEL 203 MG/DL (<200); CREATININE FOR GFR 0.72 MG/DL (0.55-1.30); GLOMERULAR FILTRATION RATE > 60.0 (>60); GLUCOSE, FASTING 85 MG/DL (60-100); SODIUM LEVEL 138 MMOL/L (136-145); THYROID STIMULATING HORMONE 3.484 uIU/ML (0.55-4.78); TOTAL 25(OH) VITAMIN D 50.4 NG/ML (20.0-100.0); TOTAL PROTEIN 7.1 G/DL (5.7-8.2); TRIGLYCERIDES LEVEL 439 MG/DL (<150)
[2022-11-17 12:57] LABS: FREE T4 1.24 NG/DL (0.89-1.76)
[2022-11-17 12:58] LABS: VITAMIN B12 LEVEL 953 PG/ML (211-911)
== END ==
LOC: M WUC 09:48
PROVIDERS: ATTEND Internal Medicine Hematology
DX: E28.2 Polycystic ovarian syndrome (principal); E88.81 Metabolic syndrome and other insulin resistance; E78.1 Pure hyperglyceridemia; I10 Essential (primary) hypertension; H54.8 Legal blindness, as defined in USA

== ENCOUNTER → 2023-05-14 | Outpatient (CLI) | payer MEDICARE, MEDICAID ==
[~2023-05-14] MED LIST changes: -FLUT50SP17 NARES; +FLUTISP NARES
[2023-05-14 16:13] LABS: HEMATOCRIT 40.6 % (36.0-47.0); HEMOGLOBIN 14.1 g/dl (12.0-15.5); MEAN CORPUSCULAR HGB CONC 34.7 g/dl (32.0-36.5); MEAN CORPUSCULAR VOLUME 97.8 fl (80.0-96.0); PLATELET COUNT, AUTOMATED 416 10^3/uL (150-450); RED BLOOD COUNT 4.15 10^6/uL (4.00-5.40); WHITE BLOOD COUNT 20.8 10^3/uL (4.0-10.0)
[2023-05-14 16:32] LABS: HEMOGLOBIN A1c 4.8 % (4.0-6.0)
[2023-05-14 16:41] LABS: CREATININE, URINE 29.7 MG/DL; MALB URINE SIEMENS < 3.0 MG/L; MAU/CREAT RATIO 10.1 MCG/MG (0.0-30.0)
[2023-05-14 16:42] LABS: C REACTIVE PROTEIN QUANTITATIV < 0.40 MG/DL (<1.0)
[2023-05-14 16:43] LABS: ALBUMIN 3.8 G/DL (3.2-5.2); ALKALINE PHOSPHATASE 48 U/L (46-116); ALT/SGPT 27 U/L (7.0-40); AST/SGOT 9 U/L (<34); BILIRUBIN,TOTAL 0.9 MG/DL (0.3-1.2); BLOOD UREA NITROGEN 12 MG/DL (9-23); CALCIUM LEVEL 9.1 MG/DL (8.5-10.1); CARBON DIOXIDE LEVEL 28 MMOL/L (20-31); CHLORIDE LEVEL 100 MMOL/L (98-107); CHOLESTEROL LEVEL 252 MG/DL (<200); CHOLESTEROL RISK RATIO 5.55 (<5); CREATININE FOR GFR 0.67 MG/DL (0.55-1.30); GLOMERULAR FILTRATION RATE > 60.0 (>60); GLUCOSE, FASTING 70 MG/DL (60-100); HDL CHOLESTEROL 45.4 MG/DL (>40); LDL CHOLESTEROL 140.4 MG/DL (<100); NON-HDL-C 206.6 MG/DL; SODIUM LEVEL 134 MMOL/L (136-145); TOTAL PROTEIN 7.4 G/DL (5.7-8.2); TRIGLYCERIDES LEVEL 331 MG/DL (<150)
[2023-05-14 16:44] LABS: FREE T4 0.95 NG/DL (0.89-1.76)
[2023-05-14 16:45] LABS: THYROID STIMULATING HORMONE 1.676 uIU/ML (0.55-4.78); VITAMIN B12 LEVEL 781 PG/ML (211-911)
== END ==
LOC: M PLALAB 13:45
PROVIDERS: ATTEND Internal Medicine Hematology
DX: E78.1 Pure hyperglyceridemia (principal); E28.2 Polycystic ovarian syndrome; E55.9 Vitamin D deficiency, unspecified; G93.2 Benign intracranial hypertension; I10 Essential (primary) hypertension; Z79.899 Other long term (current) drug therapy

== ENCOUNTER → 2023-05-21 | Outpatient (CLI) | payer MEDICARE, MEDICAID ==
[2023-05-21 13:22] LABS: BASO # 0.1 10^3/uL (0.0-0.2); BASO % 1.2 % (0.0-1.0); EOS # 0.1 10^3/uL (0.0-0.5); HEMATOCRIT 40.9 % (36.0-47.0); HEMOGLOBIN 14.1 g/dl (12.0-15.5); LYMPH # 2.2 10^3/uL (1.5-5.0); MEAN CORPUSCULAR HEMOGLOBIN 33.7 pg (27.0-33.0); MEAN CORPUSCULAR HGB CONC 34.5 g/dl (32.0-36.5); MEAN CORPUSCULAR VOLUME 97.6 fl (80.0-96.0); MONO # 0.9 10^3/uL (0.0-0.8); MONO % 7.9 % (2.0-8.0); NEUTROPHILS # 7.8 10^3/uL (1.5-8.5); NEUTROPHILS % 69.5 % (36.0-66.0); PLATELET COUNT, AUTOMATED 400 10^3/uL (150-450); RED BLOOD COUNT 4.19 10^6/uL (4.00-5.40); WHITE BLOOD COUNT 11.2 10^3/uL (4.0-10.0)
== END ==
LOC: M PLALAB 11:09
PROVIDERS: ATTEND Internal Medicine Hematology
DX: E28.2 Polycystic ovarian syndrome (principal)

== ENCOUNTER → 2023-11-17 | Outpatient (CLI) | payer MEDICARE, MEDICAID ==
[2023-11-17 19:37] LABS: BASO # 0.1 10^3/uL (0.0-0.2); BASO % 1.1 % (0.0-1.0); EOS # 0.2 10^3/uL (0.0-0.5); EOS % 1.5 % (0.0-3.0); HEMOGLOBIN 13.9 g/dl (12.0-15.5); LYMPH # 2.3 10^3/uL (1.5-5.0); LYMPH % 22.8 % (24.0-44.0); MEAN CORPUSCULAR HEMOGLOBIN 33.8 pg (27.0-33.0); MEAN CORPUSCULAR HGB CONC 34.8 g/dl (32.0-36.5); MEAN CORPUSCULAR VOLUME 97.3 fl (80.0-96.0); MONO # 0.6 10^3/uL (0.0-0.8); MONO % 5.8 % (2.0-8.0); NEUTROPHILS % 68.3 % (36.0-66.0); PLATELET COUNT, AUTOMATED 432 10^3/uL (150-450); RED BLOOD COUNT 4.11 10^6/uL (4.00-5.40); WHITE BLOOD COUNT 10.2 10^3/uL (4.0-10.0)
[2023-11-17 19:46] LABS: C REACTIVE PROTEIN QUANTITATIV < 0.40 MG/DL (<1.0)
[2023-11-17 19:47] LABS: ALBUMIN 3.9 G/DL (3.2-5.2); ALKALINE PHOSPHATASE 51 U/L (46-116); ALT/SGPT 47 U/L (7.0-40); AST/SGOT 19 U/L (<34); BILIRUBIN,TOTAL 0.4 MG/DL (0.3-1.2); BLOOD UREA NITROGEN 13 MG/DL (9-23); CALCIUM LEVEL 9.3 MG/DL (8.5-10.1); CARBON DIOXIDE LEVEL 26 MMOL/L (20-31); CHLORIDE LEVEL 104 MMOL/L (98-107); CHOLESTEROL LEVEL 224 MG/DL (<200); GLOMERULAR FILTRATION RATE > 60.0 (>60); GLUCOSE, FASTING 111 MG/DL (60-100); HDL CHOLESTEROL 32.9 MG/DL (>40); IRON (FE) 55 UG/DL (50-170); NON-HDL-C 191.1 MG/DL; POTASSIUM SERUM 4.5 MMOL/L (3.5-5.1); SODIUM LEVEL 136 MMOL/L (136-145); TOTAL PROTEIN 7.2 G/DL (5.7-8.2); TRIGLYCERIDES LEVEL 627 MG/DL (<150)
[2023-11-17 19:48] LABS: THYROID STIMULATING HORMONE 1.635 uIU/ML (0.55-4.78)
[2023-11-17 19:49] LABS: FREE T4 1.25 NG/DL (0.89-1.76)
[2023-11-17 19:54] LABS: VITAMIN B12 LEVEL 798 PG/ML (211-911)
[2023-11-17 19:58] LABS: HEMOGLOBIN A1c 4.9 % (4.0-6.0)
== END ==
LOC: M PLALAB 15:12
PROVIDERS: ATTEND Internal Medicine Hematology
DX: E28.2 Polycystic ovarian syndrome (principal); G93.2 Benign intracranial hypertension; E78.1 Pure hyperglyceridemia; E88.810 Metabolic syndrome; I10 Essential (primary) hypertension; D72.829 Elevated white blood cell count, unspecified; Z79.899 Other long term (current) drug therapy

== ENCOUNTER 2024-01-14 02:44 | Emergency (ER) | payer MEDICARE, MEDICAID ==
[~2024-01-14] VITALS: Ht 167.6 cm; Wt 122.1 kg
[2024-01-14] MEDS ORDERED: CETI-24 PO (03:05)
[2024-01-14] MEDS ORDERED: EMGA120I SUBQ (03:05)
[2024-01-14] MEDS: ONDANSETRON 4MG 2ML VIAL IV ONE (08:03)
[2024-01-14] MEDS: NS 1,000 ML IV ONE (08:03)
[2024-01-14 08:17] LABS: BASO # 0.1 10^3/uL (0.0-0.2); BASO % 0.6 % (0.0-1.0); EOS % 0.3 % (0.0-3.0); HEMOGLOBIN 13.8 g/dl (12.0-15.5); LYMPH # 1.1 10^3/uL (1.5-5.0); LYMPH % 10.4 % (24.0-44.0); MEAN CORPUSCULAR HEMOGLOBIN 33.6 pg (27.0-33.0); MEAN CORPUSCULAR HGB CONC 36.3 g/dl (32.0-36.5); MEAN CORPUSCULAR VOLUME 92.5 fl (80.0-96.0); MONO # 0.4 10^3/uL (0.0-0.8); MONO % 3.3 % (2.0-8.0); NEUTROPHILS # 9.2 10^3/uL (1.5-8.5); PLATELET COUNT, AUTOMATED 384 10^3/uL (150-450); RED BLOOD COUNT 4.11 10^6/uL (4.00-5.40); WHITE BLOOD COUNT 10.8 10^3/uL (4.0-10.0)
[2024-01-14] MEDS: KETOROLAC 30 MG/ML 1ML VIAL IV ONE (08:39)
[2024-01-14] MEDS: METOCLOPRAMIDE INJ 10MG/2ML VIAL IV ONE (08:39)
[2024-01-14] MEDS ORDERED: ONDA-282 PO (11:01)
[2024-01-14] MEDS ORDERED: AMOX875T2 PO (11:02)
[2024-01-14] MEDS: ONDANSETRON 4MG ORAL DISINTEGRATING TAB PO ONE (11:17)
[2024-01-14 11:21] VITALS: BP 105/54; TEMP 97.8; O2SAT 97
[2024-01-14 12:23] LABS: ALBUMIN 3.8 G/DL (3.2-5.2); ALKALINE PHOSPHATASE 52 U/L (46-116); ALT/SGPT 46 U/L (7.0-40); AST/SGOT 25 U/L (<34); BILIRUBIN,TOTAL 0.6 MG/DL (0.3-1.2); BLOOD UREA NITROGEN 14 MG/DL (9-23); CARBON DIOXIDE LEVEL 26 MMOL/L (20-31); CHLORIDE LEVEL 106 MMOL/L (98-107); CREATININE FOR GFR 0.65 MG/DL (0.55-1.30); GLOMERULAR FILTRATION RATE > 60.0 (>60); GLUCOSE, FASTING 134 MG/DL (60-100); POTASSIUM SERUM 4.6 MMOL/L (3.5-5.1); SODIUM LEVEL 138 MMOL/L (136-145); TOTAL PROTEIN 7.5 G/DL (5.7-8.2)
[2024-01-15] MEDS ORDERED: OXYM15SP2 (19:43)
[2024-01-15] MEDS ORDERED: MUCI600T31 PO (19:43)
[2024-01-15] MEDS ORDERED: PSEU-52 PO (19:43)
[2024-01-15] MEDS ORDERED: PROM25SU3 PR (19:45)
== END 2024-01-14 11:26 | disposition home or self-care (01) ==
LOC: M ED 02:44
DX: R51.9 Headache, unspecified (principal); J01.90 Acute sinusitis, unspecified; R11.2 Nausea with vomiting, unspecified; H54.8 Legal blindness, as defined in USA; G93.2 Benign intracranial hypertension; E11.9 Type 2 diabetes mellitus without complications; F17.200 Nicotine dependence, unspecified, uncomplicated; Z79.84 Long term (current) use of oral hypoglycemic drugs; Z79.899 Other long term (current) drug therapy; Z88.5 Allergy status to narcotic agent; Z88.8 Allergy status to other drugs, medicaments and biological substances
CPT/HCPCS: 70450; 71046; 80053; 85025; 87486; 87581; 87633; 87798; 96361; 96374; 96375; 99284; J1885; J2405; J2765

== ENCOUNTER 2024-01-15 12:50 | Emergency (ER) | payer MEDICARE, MEDICAID ==
[~2024-01-15] VITALS: Ht 167.6 cm; Wt 117.8 kg
[~2024-01-15 12:50] MED LIST changes: +AMOX875T2 PO; +CETI-24 PO; +EMGA120I SUBQ; +ONDA-282 PO
[2024-01-15] MEDS: OXYMETAZOLINE 0.05% NASAL SPRAY (AFRIN) ONE (13:43)
[2024-01-15] MEDS: NS 1,000 ML IV ONE (13:43)
[2024-01-15] MEDS: PROMETHAZINE 25MG/ML 1ML VIAL IV ONE (13:44)
[2024-01-15 13:45] LABS: BASO % 0.3 % (0.0-1.0); EOS % 0.1 % (0.0-3.0); HEMATOCRIT 37.7 % (36.0-47.0); HEMOGLOBIN 13.3 g/dl (12.0-15.5); LYMPH # 1.4 10^3/uL (1.5-5.0); LYMPH % 10.3 % (24.0-44.0); MEAN CORPUSCULAR HEMOGLOBIN 33.9 pg (27.0-33.0); MEAN CORPUSCULAR HGB CONC 35.3 g/dl (32.0-36.5); MEAN CORPUSCULAR VOLUME 96.2 fl (80.0-96.0); MONO # 0.7 10^3/uL (0.0-0.8); MONO % 5.1 % (2.0-8.0); NEUTROPHILS # 11.5 10^3/uL (1.5-8.5); NEUTROPHILS % 83.4 % (36.0-66.0); PLATELET COUNT, AUTOMATED 428 10^3/uL (150-450); RED BLOOD COUNT 3.92 10^6/uL (4.00-5.40); WHITE BLOOD COUNT 13.8 10^3/uL (4.0-10.0)
[2024-01-15 14:15] LABS: BLOOD UREA NITROGEN 13 MG/DL (9-23); CALCIUM LEVEL 9.6 MG/DL (8.5-10.1); CARBON DIOXIDE LEVEL 27 MMOL/L (20-31); CHLORIDE LEVEL 105 MMOL/L (98-107); CREATININE FOR GFR 0.67 MG/DL (0.55-1.30); GLOMERULAR FILTRATION RATE > 60.0 (>60); GLUCOSE, FASTING 112 MG/DL (60-100); POTASSIUM SERUM 4.1 MMOL/L (3.5-5.1); SODIUM LEVEL 135 MMOL/L (136-145)
[2024-01-15 14:26] VITALS: TEMP 97.8
[2024-01-15] MEDS: KETOROLAC 30 MG/ML 1ML VIAL IV ONE (15:28)
[2024-01-15] MEDS: METOCLOPRAMIDE INJ 10MG/2ML VIAL IV ONE (15:29)
[2024-01-15] MEDS: MAG SULF 1GM/100ML (MAG RUN) 1 GM in IV 1 EA IV ONE (15:29)
[2024-01-15] MEDS: ACETAMINOPHEN 325 MG TAB PO ONE (17:05)
[2024-01-15] MEDS: PSEUDOEPHEDRINE 30 MG TAB PO STA (18:04)
[2024-01-15 18:31] VITALS: BP 164/104; O2SAT 99
[2024-01-15] MEDS ORDERED: OXYM15SP2 (19:43)
[2024-01-15] MEDS ORDERED: PSEU-52 PO (19:43)
[2024-01-15] MEDS ORDERED: MUCI600T31 PO (19:43)
[2024-01-15] MEDS ORDERED: PROM25SU3 PR (19:45)
== END 2024-01-15 20:06 | disposition home or self-care (01) ==
LOC: EDBD 12:50 → M ED 12:50
DX: R51.9 Headache, unspecified (principal); J01.90 Acute sinusitis, unspecified; H54.8 Legal blindness, as defined in USA; G93.2 Benign intracranial hypertension; Z79.899 Other long term (current) drug therapy; Z88.5 Allergy status to narcotic agent; Z88.8 Allergy status to other drugs, medicaments and biological substances
CPT/HCPCS: 36415; 80048; 85025; 96374; 96375; 99285; J1885; J2550; J2765; J3475

== ENCOUNTER 2024-01-17 10:20 | Emergency (ER) | payer MEDICARE, MEDICAID ==
[~2024-01-17] VITALS: Ht 167.6 cm; Wt 121.8 kg
[~2024-01-17 10:20] MED LIST changes: +MUCI600T31 PO; +OXYM15SP2; +PROM25SU3 PR; +PSEU-52 PO
[2024-01-17] MEDS ORDERED: ACETAMINOPHEN *IV* 1,000 MG in IV 1 EA IV ONE (11:40)
[2024-01-17] MEDS: diphenhydrAMINE 50MG/ML VIAL IV ONE (11:41)
[2024-01-17] MEDS: ACETAMINOPHEN 500 MG TAB PO ONE (11:41)
[2024-01-17] MEDS: NS 1,000 ML IV ONE (11:41)
[2024-01-17] MEDS: METOCLOPRAMIDE INJ 10MG/2ML VIAL IV ONE (11:43)
[2024-01-17] MEDS: KETOROLAC 30 MG/ML 1ML VIAL IV ONE (13:19)
[2024-01-17 17:46] VITALS: BP 150/69; TEMP 98; O2SAT 97
== END 2024-01-17 18:01 | disposition short-term general hospital (02) ==
LOC: M ED 10:20 → EDBD 10:20 → M ED 18:01
DX: R51.9 Headache, unspecified (principal); G93.2 Benign intracranial hypertension; Z98.2 Presence of cerebrospinal fluid drainage device; E78.5 Hyperlipidemia, unspecified; Z88.5 Allergy status to narcotic agent; Z88.8 Allergy status to other drugs, medicaments and biological substances; Z79.899 Other long term (current) drug therapy; Z79.84 Long term (current) use of oral hypoglycemic drugs
CPT/HCPCS: 70450; 70551; 75809; 96361; 96374; 96375; 99285; J1200; J1885; J2765

== ENCOUNTER → 2024-03-07 | Outpatient (REF) | payer MEDICARE, MEDICAID ==
[2024-03-07 22:26] LABS: APPEARANCE, URINE HAZY (CLEAR); BACTERIA, URINE AUTO 1+ (NEGATIVE); BILIRUBIN, URINE AUTO NEGATIVE (NEGATIVE); BLOOD, URINE BLOOD NEGATIVE (NEGATIVE); COLOR, URINE STRAW (YELLOW); GLUCOSE, URINE (UA) AUTO NEGATIVE (NEGATIVE); KETONE, URINE AUTO NEGATIVE (NEGATIVE); LEUKOCYTE ESTERASE, URINE AUTO 3+ (NEGATIVE); MUCUS, URINE SMALL (NEGATIVE); NITRITE, URINE AUTO NEGATIVE (NEGATIVE); PROTEIN, URINE AUTO NEGATIVE (NEGATIVE); RBC, URINE AUTO 4 /HPF (0-3); SPECIFIC GRAVITY URINE AUTO 1.003 (1.002-1.035); SQUAMOUS EPITHELIAL CELL UR AU 2 /HPF (0-6); UROBILINOGEN, URINE AUTO 0.2 mg/dL (0.0-2.0); WBC, URINE AUTO 67 /HPF (0-3)
== END ==
LOC: M LAB REF 22:04
PROVIDERS: ATTEND Physician Assistant Medical
DX: N39.0 Urinary tract infection, site not specified (principal)

== ENCOUNTER → 2024-04-08 | Outpatient (REF) | payer MEDICARE, MEDICAID ==
[2024-04-08 16:50] LABS: APPEARANCE, URINE CLOUDY (CLEAR); BACTERIA, URINE AUTO 1+ (NEGATIVE); BILIRUBIN, URINE AUTO NEGATIVE (NEGATIVE); BLOOD, URINE BLOOD NEGATIVE (NEGATIVE); COLOR, URINE YELLOW (YELLOW); GLUCOSE, URINE (UA) AUTO NEGATIVE (NEGATIVE); KETONE, URINE AUTO NEGATIVE (NEGATIVE); LEUKOCYTE ESTERASE, URINE AUTO NEGATIVE (NEGATIVE); MUCUS, URINE SMALL (NEGATIVE); NITRITE, URINE AUTO NEGATIVE (NEGATIVE); PROTEIN, URINE AUTO NEGATIVE (NEGATIVE); RBC, URINE AUTO 0 /HPF (0-3); SPECIFIC GRAVITY URINE AUTO 1.002 (1.002-1.035); SQUAMOUS EPITHELIAL CELL UR AU 3 /HPF (0-6); UROBILINOGEN, URINE AUTO 0.2 mg/dL (0.0-2.0); WBC, URINE AUTO 1 /HPF (0-3)
== END ==
LOC: M LAB REF 16:00
PROVIDERS: ATTEND Physician Assistant
DX: N39.0 Urinary tract infection, site not specified (principal)

== ENCOUNTER → 2024-07-19 | Outpatient (CLI) | payer MEDICARE, MEDICAID ==
[2024-07-19 14:05] LABS: BASO # 0.1 10^3/uL (0.0-0.2); BASO % 1.1 % (0.0-1.0); EOS # 0.1 10^3/uL (0.0-0.5); EOS % 0.7 % (0.0-3.0); HEMATOCRIT 39.9 % (36.0-47.0); HEMOGLOBIN 13.1 g/dl (12.0-15.5); LYMPH # 1.3 10^3/uL (1.5-5.0); LYMPH % 14.6 % (24.0-44.0); MEAN CORPUSCULAR HEMOGLOBIN 32.7 pg (27.0-33.0); MEAN CORPUSCULAR HGB CONC 32.8 g/dl (32.0-36.5); MEAN CORPUSCULAR VOLUME 99.5 fl (80.0-96.0); MONO # 0.6 10^3/uL (0.0-0.8); MONO % 6.9 % (2.0-8.0); NEUTROPHILS # 6.8 10^3/uL (1.5-8.5); NEUTROPHILS % 76.4 % (36.0-66.0); PLATELET COUNT, AUTOMATED 426 10^3/uL (150-450); RED BLOOD COUNT 4.01 10^6/uL (4.00-5.40); WHITE BLOOD COUNT 8.9 10^3/uL (4.0-10.0)
[2024-07-19 14:13] LABS: FREE T4 0.98 NG/DL (0.89-1.76)
[2024-07-19 14:14] LABS: ALBUMIN 3.9 G/DL (3.2-5.2); ALKALINE PHOSPHATASE 58 U/L (35-104); ALT/SGPT 21 U/L (7.0-40); AST/SGOT 11 U/L (<34); BILIRUBIN,TOTAL 0.3 MG/DL (0.3-1.2); BLOOD UREA NITROGEN 14 MG/DL (9-23); C REACTIVE PROTEIN QUANTITATIV 0.59 MG/DL (<1.0); CALCIUM LEVEL 9.4 MG/DL (8.5-10.1); CARBON DIOXIDE LEVEL 20 MMOL/L (20-31); CHLORIDE LEVEL 110 MMOL/L (98-107); CHOLESTEROL LEVEL 208 MG/DL (<200); CHOLESTEROL RISK RATIO 7.61 (<5); CREATININE FOR GFR 0.83 MG/DL (0.55-1.30); GLOMERULAR FILTRATION RATE > 90.0 (>60); GLUCOSE, FASTING 83 MG/DL (60-100); HDL CHOLESTEROL 27.3 MG/DL (>40); LDL CHOLESTEROL 115.5 MG/DL (<100); NON-HDL-C 180.7 MG/DL; POTASSIUM SERUM 4.1 MMOL/L (3.5-5.1); SODIUM LEVEL 140 MMOL/L (136-145); THYROID STIMULATING HORMONE 2.748 uIU/ML (0.55-4.78); TOTAL PROTEIN 7.4 G/DL (5.7-8.2); TRIGLYCERIDES LEVEL 326 MG/DL (<150)
[2024-07-19 14:15] LABS: VITAMIN B12 LEVEL 890 PG/ML (211-911)
[2024-07-19 14:16] LABS: TOTAL 25(OH) VITAMIN D 53.4 NG/ML (20.0-100.0)
[2024-07-19 14:30] LABS: CREATININE, URINE 51.3 MG/DL; MALB URINE SIEMENS < 3.0 MG/L
[2024-07-19 14:36] LABS: HEMOGLOBIN A1c 4.7 % (4.0-6.0)
== END ==
LOC: M PLALAB 09:42
PROVIDERS: ATTEND Student in an Organized Health Care Education/Training Program
DX: I10 Essential (primary) hypertension (principal); Z79.899 Other long term (current) drug therapy

== ENCOUNTER → 2024-08-08 | Outpatient (REF) | payer MEDICARE, MEDICAID ==
[~2024-08-08] MED LIST changes: +LIDO1ADH93 TD; -LIDO5DIS41 TD
== END ==
LOC: M SFHCPLAZ 15:01
PROVIDERS: ATTEND Student in an Organized Health Care Education/Training Program
DX: Z12.4 Encounter for screening for malignant neoplasm of cervix (principal)

== ENCOUNTER → 2024-10-05 | Outpatient (REF) | payer MEDICARE, MEDICAID | LOC: M LAB REF 14:25 | PROVIDERS: ATTEND Student in an Organized Health Care Education/Training Program | DX: R30.0 Dysuria (principal) ==

== ENCOUNTER → 2024-10-18 | Outpatient (CLI) | payer MEDICARE, MEDICAID ==
[~2024-10-18] MED LIST changes: +ISOVUE-370 76% 100 ML VIAL ONE
== END ==
LOC: M PLAIMG 07:24
PROVIDERS: ATTEND Neurological Surgery
DX: I66.9 Occlusion and stenosis of unspecified cerebral artery (principal)
CPT/HCPCS: 70496; Q9967

== ENCOUNTER 2024-11-19 07:54 | Inpatient (IN) | payer MEDICARE, MEDICAID ==
[~2024-11-19] VITALS: Ht 167.6 cm; Wt 93.5 kg
[~2024-11-19 07:54] MED LIST changes: -CLIN2CR PV; +CLIN2CR TOP; -ISOVUE-370 76% 100 ML VIAL ONE
[2024-11-19 08:38] LABS: PLATELET COUNT, AUTOMATED 551 10^3/uL (150-450)
[2024-11-19 09:00] LABS: ETHYL ALCOHOL (ETHANOL) < 0.003 % (0.000-0.010)
[2024-11-19 09:02] LABS: ALT/SGPT 15 U/L (7.0-40); AST/SGOT 14 U/L (<34); CALCIUM LEVEL 9.9 MG/DL (8.5-10.1); CARBON DIOXIDE LEVEL 21 MMOL/L (20-31); CHLORIDE LEVEL 109 MMOL/L (98-107); CREATININE FOR GFR 0.90 MG/DL (0.55-1.30); GLOMERULAR FILTRATION RATE 87.1 (>60); POTASSIUM SERUM 4.0 MMOL/L (3.5-5.1); SALICYLATE LEVEL < 3.0 MG/DL (<30); SODIUM LEVEL 142 MMOL/L (136-145)
[2024-11-19 09:04] LABS: HCG, SERUM QUALITATIVE NEGATIVE (NEGATIVE)
[2024-11-19] MEDS: ONDANSETRON 4MG ORAL DISINTEGRATING TAB PO ONE (09:08)
[2024-11-19 09:27] LABS: AMPHETAMINES LEVEL URINE NEGATIVE (NEGATIVE); BARBITURATES URINE NEGATIVE (NEGATIVE); BENZODIAZEPINES URINE NEGATIVE (NEGATIVE); COCAINE METABOLITE URINE NEGATIVE (NEGATIVE)
[2024-11-19 09:28] LABS: METHADONE URINE NEGATIVE (NEGATIVE); OPIATES URINE NEGATIVE (NEGATIVE); PHENCYCLIDINE URINE NEGATIVE (NEGATIVE)
[2024-11-19 09:38] LABS: CANNABINOIDS URINE POSITIVE (NEGATIVE)
[2024-11-19] MEDS ORDERED: TRIA1CR80 TOP (09:45)
[2024-11-19] MEDS ORDERED: FENO54TA2 PO (09:45)
[2024-11-19] MEDS ORDERED: TIRZ10PE SQ (09:45)
[2024-11-19] MEDS ORDERED: CETI-24 PO (09:45)
[2024-11-19] MEDS ORDERED: ACET250T18 PO (09:45)
[2024-11-19] MEDS ORDERED: CYAN-1 PO (09:45)
[2024-11-19] MEDS ORDERED: VITA200028 PO (09:45)
[2024-11-19] MEDS ORDERED: ASPI81TA26 PO (09:45)
[2024-11-19] MEDS ORDERED: HOME MED LIST COMPLETE! XX SCH (09:50)
[2024-11-19] MEDS ORDERED: IBUPROFEN 400 MG TAB PO PRN (17:15)
[2024-11-19] MEDS ORDERED: MOM 30 ML SUSPENSION UDC PO PRN (17:15)
[2024-11-19] MEDS ORDERED: MAALOX 30 ML SUSP *UDC PO PRN (17:15)
[2024-11-19] MEDS ORDERED: traZODone 50 MG TAB PO PRN (17:15)
[2024-11-19 20:46] VITALS: BP 112/58; TEMP 98.6; O2SAT 100
[2024-11-20 06:32] VITALS: BP 126/71; TEMP 97.4; O2SAT 100
[2024-11-20] MEDS ORDERED: ENTER DRUG NAME HERE (PATIENT'S OWN MED) SC SCH (09:30)
[2024-11-20] MEDS: FENOFIBRATE 48 MG TABLET PO SCH (10:09)
[2024-11-20] MEDS: ASPIRIN 81 MG ENTERIC TABLET PO SCH (10:09)
[2024-11-20] MEDS: CETIRIZINE 10 MG TAB PO SCH (10:09)
[2024-11-20] MEDS: MAGNESIUM OXIDE 400 MG TAB PO SCH (10:09)
[2024-11-20] MEDS: acetaZOLAMIDE 250 MG TAB PO SCH (10:09)
[2024-11-20] MEDS: CYANOCOBALAMIN 500 MCG TAB PO SCH (10:10)
[2024-11-20 15:34] VITALS: BP 128/74; TEMP 97.3; O2SAT 100
[2024-11-21 06:29] VITALS: BP 111/55; TEMP 97.1; O2SAT 100
[2024-11-21 08:24] VITALS: BP 118/68
[2024-11-21 14:49] VITALS: BP 118/60; TEMP 97.9; O2SAT 99
[2024-11-21] MEDS: ACETAMINOPHEN 325 MG TAB PO PRN (20:51)
[2024-11-22 06:36] VITALS: BP 106/54; TEMP 97.5; O2SAT 100
[2024-11-22 08:15] VITALS: BP 118/66
[2024-11-22] MEDS ORDERED: ABIL10TA9 PO (08:51)
== END 2024-11-22 11:30 | disposition home or self-care (01) | DRG 885 ==
LOC: M ED 07:54 → M ED INP 17:14 → M PSY 20:00
PROVIDERS: ADMIT General Practice; ATTEND General Practice
DX: F29 Unspecified psychosis not due to a substance or known physiological condition (principal); F41.1 Generalized anxiety disorder; H54.8 Legal blindness, as defined in USA; G93.2 Benign intracranial hypertension; E28.2 Polycystic ovarian syndrome; G43.909 Migraine, unspecified, not intractable, without status migrainosus; E78.5 Hyperlipidemia, unspecified; Z79.899 Other long term (current) drug therapy; Z88.5 Allergy status to narcotic agent; Z88.8 Allergy status to other drugs, medicaments and biological substances

== ENCOUNTER → 2024-12-02 | Outpatient (REF) | payer MEDICARE ==
[~2024-12-02] MED LIST changes: +ABIL10TA9 PO; +ACET250T18 PO; +ASPI81TA26 PO; +CYAN-1 PO; +FENO54TA2 PO; +TIRZ10PE SQ; +TRIA1CR80 TOP; +VITA200028 PO
== END ==
LOC: M SFHCPLAZ 08:50
PROVIDERS: ATTEND Family Medicine
DX: R44.0 Auditory hallucinations (principal); E78.2 Mixed hyperlipidemia; H54.8 Legal blindness, as defined in USA; G93.2 Benign intracranial hypertension

== ENCOUNTER → 2024-12-13 | Outpatient (CLI) | payer MEDICARE ==
[2024-12-13 15:19] LABS: CHOLESTEROL LEVEL 213.0 MG/DL (<200); CHOLESTEROL RISK RATIO 5.35 (<5); LDL CHOLESTEROL 134.4 MG/DL (<100); NON-HDL-C 173.2 MG/DL; TRIGLYCERIDES LEVEL 194.0 MG/DL (<150)
== END ==
LOC: M PLALAB 10:35
PROVIDERS: ATTEND Family Medicine
DX: R44.0 Auditory hallucinations (principal); E78.2 Mixed hyperlipidemia